=== PATIENT | male | born 1995 | race Caucasian/White ===

== ENCOUNTER 2017-04-13 06:33 | Emergency (ER) | payer OTHER ==
[2017-04-13 06:33] VITALS: BMI 19.8
[2017-04-13] MEDS ORDERED: Alum-Mag Hydrox-Simethicone Susp (30 mL) PO STA (07:19)
--- NOTE | 2017-04-13 07:28 | ED PDOC ---
HPI: Abdomen Time Seen by Provider: 04/13/17 07:04 Chief Complaint (Nursing): Abdominal Pain Chief Complaint (Provider): Abdominal Pain History Per: Patient History/Exam Limitations: no limitations Onset/Duration Of Symptoms: Days (x1), Intermittent Episodes Outside of [place] travel?: No Current Symptoms Are (Timing): Still Present Associated Symptoms: Constipation. denies: Fever, Vomiting Exacerbating Factors: Other (Attempting to make bowel movement) Last Bowel Movement: Today (x4 hours ago) Additional History Per: Family (Mother) Additional Complaint(s): 21 year old male presents to ED with complaints of abdominal pain x1 day and has a past medical history of gastritis. (+) constipation, (-) vomiting or fever. Mother states that she gave the patient Dulcolax with partial relief. Patient notes that he was last diagnosed with gastritis x3 months ago. PCP: Paulo Past Medical History Reviewed: Historical Data, Nursing Documentation, Vital Signs Vital Signs: Last Vital Signs Temp 97.5 F L 04/13/17 06:46 Pulse 60 04/13/17 07:48 Resp 20 04/13/17 07:48 BP 108/70 04/13/17 07:48 Pulse Ox 100 04/13/17 07:32 - Medical History PMH: Gastritis, Pancreatitis Denies: Diabetes, Hepatitis, HIV, HTN, Chronic Kidney Disease, Seizures, Sexually Transmitted Disease - Surgical History Surgical History: No Surg Hx - Family History Family History: States: No Known Family Hx - Living Arrangements Living Arrangements: With Family - Social History Current smoker - smoking cessation education provided: Yes Ex-Smoker (has not smoked in the last 12 months): No Alcohol: None Drugs: Denies - Home Medications Home Medications: Ambulatory Orders Medication Instructions Recorded Ondansetron ODT [Zofran ODT] 4 mg PO TID #21 odt 01/14/16 oxyCODONE/Acetaminophen [Percocet 1 ea PO Q8 PRN #10 tab 01/14/16 5/325 mg Tab] Ibuprofen [Motrin] 600 mg PO TID PRN #30 tab 04/10/16 - Allergies Allergies/Adverse Reactions: Allergies Allergy/AdvReac Type Severity Reaction Status Date / Time No Known Allergies Allergy Verified 07/04/16 14:28 Review of Systems ROS Statement: Except As Marked, All Systems Reviewed And Found Negative Constitutional: Negative for: Fever Gastrointestinal: Positive for: Abdominal Pain, Constipation. Negative for: Nausea Physical Exam - Reviewed Nursing Documentation Reviewed: Yes Vital Signs Reviewed: Yes - Physical Exam Appears: Positive for: Non-toxic Skin: Positive for: Normal Color, Warm, Dry Eye Exam: Positive for: Normal appearance Cardiovascular/Chest: Positive for: Regular Rate, Rhythm. Negative for: Murmur Respiratory: Positive for: Normal Breath Sounds. Negative for: Respiratory Distress Gastrointestinal/Abdominal: Positive for: Soft, Tenderness (epigastric and periumbilical tenderness) Extremity: Positive for: Normal ROM, Deformity Neurologic/Psych: Positive for: Alert, Oriented. Negative for: Motor/Sensory Deficits - Laboratory Results Result Diagrams: 04/13/17 07:54 04/13/17 07:54 - ECG O2 Sat by Pulse Oximetry: 100 (RA) Pulse Ox Interpretation: Normal - Progress Re-evaluation Time: 10:06 Condition: Re-examined, Improved Medical Decision Making Medical Decision Makin Initial impression: abdominal pain DDx: gastritis, colitis, less likely colitis or cholecystitis Initial plan: * Labs * Lipase * Maalox Plus 30mL PO * Pepcid 20mg IVP * Lidocaine 2% viscous * Re-eval 10.05am Pt is improved significantly. No pain at this time. Exam is normal in the abdomen. Scribe Attestation: Documented by Padma Forbes acting as a scribe for Evie Riley. Scribe Attestation: All medical record entries made by the Scribe were at my direction and personally dictated by me. I have reviewed the chart and agree that the record accurately reflects my personal performance of the history, physical exam, medical decision making, and the department course for this patient. I have also personally directed, reviewed, and agree with the discharge instructions and disposition. Disposition - Clinical Impression Clinical Impression: Abdominal pain, Constipation, Gastritis - Patient ED Disposition Is Patient to be Admitted: No Doctor Will See Patient In The: Office Counseled Patient/Family Regarding: Studies Performed, Diagnosis, Need For Followup - Disposition Referrals: [facility] [Outside] Disposition: Routine/Home Disposition Time: 10:07 Condition: GOOD Additional Instructions: Take your medications as instructed. Follow up with your PCP in 2-3 days. Instructions: Gastritis (ED), Constipation (ED)
[2017-04-13] MEDS ORDERED: Alum-Mag Hydrox-Simethicone Susp (30 mL) ONE (07:35)
[2017-04-13 07:49] VITALS: RESP 20
[2017-04-13 08:07] LABS: BASO % 0.4 % (0.0-2.0); EOS # 0.1 K/uL (0.0-0.7); EOS % 1.8 % (0.0-4.0); HEMOGLOBIN 13.6 g/dL (12.0-18.0); LYMPH % 37.1 % (20.0-40.0); MEAN CELL VOLUME 94.1 fl (80.0-94.0); MEAN CORPUSCULAR HEMOGLOBIN 31.4 pg (27.0-31.0); MEAN CORPUSCULAR HGB CONC 33.3 g/dL (33.0-37.0); MEAN PLATELET VOLUME 7.9 fl (7.2-11.7); MONO # 0.8 K/uL (0.0-0.8); NEUT # 4.1 K/uL (1.8-7.0); NEUT % 50.7 % (50.0-75.0); NRBC % 0.1 % (0.0-0.0); RBC 4.33 Mil/uL (4.40-5.90); RED CELL DISTRIBUTION WIDTH 13.9 % (11.5-14.5)
[2017-04-13 08:10] LABS: ALB/GLOB RATIO 1.7 (1.0-2.1); ALBUMIN 4.4 g/dL (3.5-5.0); ALT/SGPT 29 U/L (21-72); AST/SGOT 20 U/L (17-59); BLOOD UREA NITROGEN 10 mg/dl (9-20); CALCIUM 9.4 mg/dL (8.4-10.2); GFR AFRICAN-AMERICAN > 60; GFR NON-AFRICAN AMERICAN > 60; LIPASE 70 U/L (23-300)
[2017-04-13 10:17] VITALS: BP 120/78; PULSE 78; TEMP 97.7; O2SAT 98
== END 2017-04-13 10:17 | disposition home or self-care (01) ==
LOC: H.ER 06:33
DX: K59.00 Constipation, unspecified (principal); K29.70 Gastritis, unspecified, without bleeding; K85.90 Acute pancreatitis without necrosis or infection, unspecified

== ENCOUNTER 2018-03-23 11:32 | Emergency (ER) | payer OTHER ==
[2018-03-23 11:38] VITALS: BMI 18.4
[2018-03-23 11:39] VITALS: BP 106/64; PULSE 62; RESP 17; TEMP 98.2; O2SAT 98
--- NOTE | 2018-03-23 12:51 | ED PDOC ---
HPI: General Adult Time Seen by Provider: 03/23/18 12:00 Chief Complaint (Nursing): Upper Extremity Problem/Injury Chief Complaint (Provider): hands are twitching History Per: Patient History/Exam Limitations: no limitations Onset/Duration Of Symptoms: Days (2 weeks), Intermittent Episodes Current Symptoms Are (Timing): Intermittent Episodes Additional Complaint(s): 22yo male c/o twitching to hands and forearms, states worsens playing video games and after smoking marijuana. Denies headache, weakness, numbness, fever, change in vision, muscle pains or syncope. Past Medical History Reviewed: Historical Data, Nursing Documentation, Vital Signs Vital Signs: Last Vital Signs Temp 98.2 F 03/23/18 11:38 Pulse 62 03/23/18 11:38 Resp 17 03/23/18 11:38 BP 106/64 03/23/18 11:38 Pulse Ox 98 03/23/18 11:38 - Medical History PMH: Gastritis, Pancreatitis Denies: Diabetes, Hepatitis, HIV, HTN, Chronic Kidney Disease, Seizures, Sexually Transmitted Disease - Family History Family History: States: Unknown Family Hx - Living Arrangements Living Arrangements: With Family - Social History Alcohol: Occasional Drugs: Cannabis - Home Medications Home Medications: Ambulatory Orders Medication Instructions Recorded Ondansetron ODT [Zofran ODT] 4 mg PO TID #21 odt 01/14/16 oxyCODONE/Acetaminophen [Percocet 1 ea PO Q8 PRN #10 tab 01/14/16 5/325 mg Tab] Ibuprofen [Motrin] 600 mg PO TID PRN #30 tab 04/10/16 - Allergies Allergies/Adverse Reactions: Allergies Allergy/AdvReac Type Severity Reaction Status Date / Time No Known Allergies Allergy Verified 03/23/18 12:08 Review of Systems Constitutional: Negative for: Fever Cardiovascular: Negative for: Chest Pain, Palpitations Gastrointestinal: Negative for: Nausea, Abdominal Pain Genitourinary Male: Negative for: Dysuria Musculoskeletal: Negative for: Neck Pain Skin: Negative for: Rash, Lesions Neurological: Negative for: Weakness, Numbness Psych: Negative for: Anxiety Physical Exam - Reviewed Nursing Documentation Reviewed: Yes Vital Signs Reviewed: Yes - Physical Exam Appears: Positive for: Well, Non-toxic, No Acute Distress Head Exam: Positive for: ATRAUMATIC, NORMAL INSPECTION, NORMOCEPHALIC Skin: Positive for: Normal Color, Warm, DRY Eye Exam: Positive for: EOMI, Normal appearance, PERRL ENT: Positive for: Normal ENT Inspection Neck: Positive for: Normal, Painless ROM Cardiovascular/Chest: Positive for: Regular Rate, Rhythm Respiratory: Positive for: CNT, Normal Breath Sounds Gastrointestinal/Abdominal: Positive for: Soft. Negative for: Tenderness Back: Positive for: Normal Inspection Extremity: Positive for: Normal ROM Neurologic/Psych: Positive for: Alert, Oriented. Negative for: Motor/Sensory Deficits - ECG O2 Sat by Pulse Oximetry: 98 Medical Decision Making Medical Decision Making: workup for muscle tremor initiated r/o neurologic pathhology, electrolyte abnormality vs drug abuse vs other 1245p notified by RN that patient did not want to wait for testing. [facility]TC. Was aware he needed further testing. Was AAOx3 with stable gait last seen. Disposition - Clinical Impression Clinical Impression: Muscle twitching - Patient ED Disposition Is Patient to be Admitted: No - Disposition Disposition: Left W/O Treatment Disposition Time: 12:45 Condition: STABLE
== END 2018-03-23 12:55 | disposition left against medical advice (07) ==
LOC: H.ER 11:32
DX: M62.838 Other muscle spasm (principal)

== ENCOUNTER 2018-04-16 10:43 | Emergency (ER) | payer OTHER ==
[2018-04-16 10:43] VITALS: BMI 18.4
--- NOTE | 2018-04-16 11:33 | ED PDOC ---
HPI: CCC, URI, Sore Throat Time Seen by Provider: 04/16/18 11:31 Chief Complaint (Nursing): ENT Problem Chief Complaint (Provider): RIGHT EAR History Per: Patient (22 Y/O MALE HERE FOR EVALUATION OF RIGHT EAR PAIN TODAY. DENIES ANY FEVERS/CHILLS/URI. HAS BEEN SWIMMING IN [place] THIS WEEK.) Past Medical History Reviewed: Historical Data, Nursing Documentation, Vital Signs Vital Signs: Last Vital Signs Temp 99.4 F 04/16/18 11:05 Pulse 82 04/16/18 11:05 Resp 17 04/16/18 11:05 BP 111/68 04/16/18 11:05 Pulse Ox 98 04/16/18 11:05 - Medical History PMH: Gastritis, Pancreatitis Denies: Diabetes, Hepatitis, HIV, HTN, Chronic Kidney Disease, Seizures, Sexually Transmitted Disease - Family History Family History: States: Unknown Family Hx - Home Medications Home Medications: Ambulatory Orders Medication Instructions Recorded Ondansetron ODT [Zofran ODT] 4 mg PO TID #21 odt 01/14/16 oxyCODONE/Acetaminophen [Percocet 1 ea PO Q8 PRN #10 tab 01/14/16 5/325 mg Tab] Ibuprofen [Motrin] 600 mg PO TID PRN #30 tab 04/10/16 Acetaminophen [Acetaminophen Extra 2 tab PO Q6 PRN #24 tablet 04/16/18 Strength] Amoxicillin 500 mg PO TID #21 tablet 04/16/18 Ibuprofen [Motrin] 600 mg PO Q8 PRN #21 tab 04/16/18 Neomycin/Polymyxin/Hydrocortis 4 drop AD STAT #1 bottle 04/16/18 [Cortisporin Otic Susp] - Allergies Allergies/Adverse Reactions: Allergies Allergy/AdvReac Type Severity Reaction Status Date / Time No Known Allergies Allergy Verified 03/23/18 12:08 Review of Systems ROS Statement: Except As Marked, All Systems Reviewed And Found Negative Physical Exam - Reviewed Nursing Documentation Reviewed: Yes Vital Signs Reviewed: Yes - Physical Exam Appears: Positive for: Well, Non-toxic, No Acute Distress Head Exam: Positive for: ATRAUMATIC, NORMAL INSPECTION, NORMOCEPHALIC Skin: Positive for: Normal Color, Warm, DRY Eye Exam: Positive for: EOMI, Normal appearance, PERRL ENT: Positive for: TM Is/Are (UNABLE TO VISUALIZE TM RIGHT EAR. MODERATE SWELLING AND EXUDATE EXTERNAL EAR CANAL.). Negative for: Normal ENT Inspection Neck: Positive for: Normal, Painless ROM Cardiovascular/Chest: Positive for: Regular Rate, Rhythm Respiratory: Positive for: CNT, Normal Breath Sounds Gastrointestinal/Abdominal: Positive for: Normal Exam, Soft Back: Positive for: Normal Inspection Extremity: Positive for: Normal ROM Neurologic/Psych: Positive for: Alert, Oriented - ECG O2 Sat by Pulse Oximetry: 98 Disposition - Clinical Impression Clinical Impression: Otitis externa of right ear - Patient ED Disposition Is Patient to be Admitted: No - Disposition Disposition: Routine/Home Disposition Time: 11:33 Condition: FAIR Prescriptions: Acetaminophen [Acetaminophen Extra Strength] 2 tab PO Q6 PRN #24 tablet PRN Reason: Pain, Moderate (4-7) Amoxicillin 500 mg PO TID #21 tablet Ibuprofen [Motrin] 600 mg PO Q8 PRN #21 tab PRN Reason: Pain, Moderate (4-7) Neomycin/Polymyxin/Hydrocortis [Cortisporin Otic Susp] 4 drop AD STAT #1 bottle Instructions: Outer Ear Infection (DC) Forms: [facility] ED School/Work Excuse
[2018-04-16 11:53] VITALS: BP 118/62; PULSE 78; RESP 18; TEMP 99.1; O2SAT 100
== END 2018-04-16 11:40 | disposition home or self-care (01) ==
LOC: H.ER 10:43
DX: H60.91 Unspecified otitis externa, right ear (principal)

== ENCOUNTER 2018-05-22 14:57 | Inpatient (IN) | payer MEDICAID, OTHER ==
[2018-05-22 14:57] VITALS: BMI 18.4
[2018-05-22 15:00] VITALS: O2SAT 98
[2018-05-22] MEDS ORDERED: Sodium Chloride 0.9% 1,000 ML IV STA (15:20)
--- NOTE | 2018-05-22 15:31 | ED PDOC ---
HPI: Abdomen Time Seen by Provider: 05/22/18 15:09 Chief Complaint (Nursing): Psychiatric Evaluation Chief Complaint (Provider): Abdominal pain History Per: Patient History/Exam Limitations: no limitations Additional Complaint(s): Pt reports constant abdominal pain since yesterday, admits to drinking alcohol day before symptoms started. Denies fever, nausea, vomiting, constipation, diarrhea. Similar sxs in past secondary to alcohol use. Mother states patient called 911 for abdominal pain but as per EMS, pt showed them video of pt trying to hang himself. Mother states patient has been having problems with his girlfriend. Denies suicidal ideation at this time. Past Medical History Reviewed: Nursing Documentation, Vital Signs Vital Signs: Last Vital Signs Temp 98.1 F 05/24/18 16:35 Pulse 78 05/24/18 16:35 Resp 18 05/24/18 16:35 BP 112/61 05/24/18 16:35 Pulse Ox 98 05/22/18 21:00 - Medical History PMH: Gastritis, Pancreatitis Denies: Diabetes, Hepatitis, HIV, HTN, Chronic Kidney Disease, Seizures, Sexually Transmitted Disease - Family History Family History: States: Unknown Family Hx - Living Arrangements Living Arrangements: With Family - Social History Current smoker - smoking cessation education provided: No Alcohol: Occasional - Home Medications Home Medications: Ambulatory Orders Medication Instructions Recorded Ondansetron ODT [Zofran ODT] 4 mg PO TID #21 odt 01/14/16 oxyCODONE/Acetaminophen [Percocet 1 ea PO Q8 PRN #10 tab 01/14/16 5/325 mg Tab] Ibuprofen [Motrin] 600 mg PO TID PRN #30 tab 04/10/16 Acetaminophen [Acetaminophen Extra 2 tab PO Q6 PRN #24 tablet 04/16/18 Strength] Amoxicillin 500 mg PO TID #21 tablet 04/16/18 Ibuprofen [Motrin] 600 mg PO Q8 PRN #21 tab 04/16/18 Neomycin/Polymyxin/Hydrocortis 4 drop AD STAT #1 bottle 04/16/18 [Cortisporin Otic Susp] - Allergies Allergies/Adverse Reactions: Allergies Allergy/AdvReac Type Severity Reaction Status Date / Time No Known Allergies Allergy Verified 05/22/18 14:58 Review of Systems Constitutional: Negative for: Fever, Chills Cardiovascular: Negative for: Chest Pain, Palpitations Respiratory: Negative for: Cough, Shortness of Breath Gastrointestinal: Positive for: Abdominal Pain. Negative for: Nausea, Vomiting , Diarrhea Genitourinary Male: Negative for: Dysuria, Hematuria Skin: Negative for: Rash, Lesions Neurological: Negative for: Headache Psych: Negative for: Suicidal ideation Physical Exam - Reviewed Nursing Documentation Reviewed: Yes Vital Signs Reviewed: Yes - Physical Exam Appears: Positive for: Well, No Acute Distress Head Exam: Positive for: ATRAUMATIC, NORMAL INSPECTION Skin: Positive for: Normal Color, Warm, Dry Eye Exam: Positive for: Normal appearance, EOMI, PERRL Cardiovascular/Chest: Positive for: Regular Rate, Rhythm Respiratory: Positive for: Normal Breath Sounds Gastrointestinal/Abdominal: Positive for: Bowel Sounds, Soft, Tenderness (BLQ). 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 - labs - CT abd/pelvis - Bent[place] - Crisis evaluation - 1:1 observation 15:25 Pt attempted to elope from ED, Code [place] initiated, Haldol 5 mg IM and Ativan 2 mg IM administered, involuntary hold due to potential harm to self and history of suicide attempt. Disposition - Clinical Impression Clinical Impression: Depression - Patient ED Disposition Is Patient to be Admitted: Yes - Disposition Disposition Time: 20:16 Condition: STABLE - Pt Status Changed To: Hospital Disposition Of: Inpatient - Admit Certification Admit to Inpatient:: After my assessment, the patient will require hospitalization for at least two midnights. This is because of the severity of symptoms shown, intensity of services needed, and/or the medical risk in this patient being treated as an outpatient. - POA Present On Arrival: None
[2018-05-22 16:01] LABS: BASO % 0.5 % (0.0-2.0); EOS % 0.9 % (0.0-4.0); HEMOGLOBIN 13.8 g/dL (12.0-18.0); LYMPH # 1.1 K/uL (1.0-4.3); LYMPH % 22.2 % (20.0-40.0); MEAN CELL VOLUME 94.7 fl (80.0-94.0); MEAN CORPUSCULAR HEMOGLOBIN 31.7 pg (27.0-31.0); MEAN CORPUSCULAR HGB CONC 33.5 g/dL (33.0-37.0); MEAN PLATELET VOLUME 7.7 fl (7.2-11.7); MONO # 0.6 K/uL (0.0-0.8); MONO % 11.1 % (0.0-10.0); NEUT # 3.3 K/uL (1.8-7.0); NEUT % 65.3 % (50.0-75.0); RBC 4.37 Mil/uL (4.40-5.90); RED CELL DISTRIBUTION WIDTH 14.3 % (11.5-14.5); WHITE BLOOD COUNT 5.1 K/uL (4.8-10.8)
[2018-05-22 16:17] LABS: ALB/GLOB RATIO 1.6 (1.0-2.1); ALBUMIN 4.6 g/dL (3.5-5.0); ALT/SGPT 25 U/L (21-72); AST/SGOT 30 U/L (17-59); BLOOD UREA NITROGEN 12 mg/dl (9-20); CALCIUM 9.4 mg/dL (8.4-10.2); GFR AFRICAN-AMERICAN > 60; GFR NON-AFRICAN AMERICAN > 60; LIPASE 27 U/L (23-300)
[2018-05-22 16:23] LABS: PROTHROMBIN TIME 11.2 Seconds (9.8-13.1)
[2018-05-22 16:26] LABS: PARTIAL THROMBOPLASTIN TIME 29.8 Seconds (25.6-37.1)
--- NOTE | 2018-05-22 16:42 | CT ---
Date of service: 05/22/2018 PROCEDURE: CT Abdomen and Pelvis without intravenous contrast HISTORY: Abdominal pain Prior history of pancreatitis presenting with normal lipase. COMPARISON: 01/14/2016 CTAbdomen and pelvis TECHNIQUE: Unenhanced study. Neither oral nor intravenous contrast administered. Sensitivity and specificity for acute inflammatory processes limited by the absence of oral and intravenous contrast. Radiation dose: Total exam DLP = 266.09 mGy-cm. This CT exam was performed using one or more of the following dose reduction techniques: Automated exposure control, adjustment of the mA and/or kV according to patient size, and/or use of iterative reconstruction technique. FINDINGS: LOWER THORAX: Unremarkable. LIVER: Unremarkable. No gross lesion or ductal dilatation. GALLBLADDER AND BILE DUCTS: Unremarkable. PANCREAS: Unremarkable. No gross lesion or ductal dilatation. SPLEEN: Unremarkable. ADRENALS: Unremarkable. No mass. KIDNEYS AND URETERS: Unremarkable. No hydronephrosis. No solid mass. VASCULATURE: Unremarkable. No aortic aneurysm. BOWEL: Unremarkable. No obstruction. No gross mural thickening. APPENDIX: Unremarkable. Normal appendix. PERITONEUM: No free fluid. No free air. LYMPH NODES: Multiple mesenteric lymph nodes consistent with mesenteric adenitis. Similar findings identified previously. BLADDER: Unremarkable. REPRODUCTIVE: Unremarkable. BONES: No acute fracture. OTHER FINDINGS: None. IMPRESSION: No acute findings related to/accounting for the clinical presentation. Additional benign and/or incidental findings described above. No significant interval change compared to the prior examination(s).
[2018-05-22 16:55] LABS: SQUAMOUS EPITHIAL < 1 /hpf (0-5); URINE BILIRUBIN NEGATIVE (NEGATIVE); URINE BLOOD NEGATIVE (NEGATIVE); URINE CALCIUM OXALATE CRYSTALS OCC /hpf (<OCC); URINE CLARITY SLIGHTY-CLOUDY (Clear); URINE COLOR YELLOW (YELLOW); URINE GLUCOSE (UA) NEG (Normal); URINE LEUKOCYTE ESTERASE NEG Leu/uL (Negative); URINE PROTEIN 30 mg/dL (NEGATIVE)
[2018-05-22 17:08] LABS: BARBITURATES, UR NEGATIVE (NEGATIVE); BENZODIAZEPINES, UR POSITIVE (NEGATIVE); OPIATES, UR NEGATIVE (NEGATIVE); PHENCYCLIDINE, UR NEGATIVE (NEGATIVE)
--- NOTE | 2018-05-22 17:09 | RAD ---
Date of service: 05/22/2018 HISTORY: Medical clearance COMPARISON: 01/14/2016 FINDINGS: LUNGS: No active pulmonary disease. PLEURA: No significant pleural effusion identified, no pneumothorax apparent. CARDIOVASCULAR: Normal. OSSEOUS STRUCTURES: No significant abnormalities. VISUALIZED UPPER ABDOMEN: Normal. OTHER FINDINGS: None. IMPRESSION: No active disease.
[2018-05-22] MEDS ORDERED: Magnesium Hydroxide Susp 30 ml UD PO PRN (21:53)
[2018-05-22] MEDS ORDERED: DiphenhydrAMINE 50 mg/ml Inj IM PRN (21:53)
[2018-05-22] MEDS ORDERED: Alum-Mag Hydrox-Simethicone Susp (30 mL) PO PRN (21:53)
[2018-05-22 22:24] VITALS: RESP 18
--- NOTE | 2018-05-22 23:25 | PCM.BM ---
<Sherron Dimas P - Last Filed: 05/22/18 23:24> Treatment Plan Problems - Problems identified on initial assessmt Hopelessness/Helplessness Date Initiated: 05/22/18 Time Initiated: 23:24 Assessment reference: NA Status: Active Altered Sleep Patterns Date Initiated: 05/22/18 Time Initiated: 23:24 Assessment reference: NA Status: Active Treatment assets and liabiliti Patient Assests: cooperative, physically healthy, negotiates basic needs, cognitively intact Patient Liabilities: financial problems, relationship conflicts, substance abuse - Milieu Protocol Maintain good personal hygiene: daily Encourage regular showers, daily Remind patient to perform daily oral care, daily Assist patient to perform ADL's Conduct patient checks and document Observation sheet: Q15 minutes Maintain personal safety: every shift Educate patient to report safety concerns to staff, every shift Monitor environment for contraband/sharps Medication safety: Monitor for expected outcome, potential side effects: every shift, Assess barriers to learning: every shift, Assess readiness for medication education: every shift <Jose Francisco Hamm J - Last Filed: 05/23/18 13:47> Family Contact Family involvement: Family/SO is involved Family contact: Patient declines to allow family contact at present Family contact name: Pt declined. Family contacted how many times per week?: 0 - Goals for Treatment Patient goals for treatment: Pt reported he would like to "relax." Discharge/Continuing Care - Education Needs Education Needs: Patient Medication, Patient Diagnosis/Disease Process, Patient Coping Skills, Patient Aftercare Safety Plan - Discharge Discharge Criteria: Tolerates medication w/o severe side effects, Free of Suicidal thoughts, Free of agitation, Reduction of target symptoms Discharge to:: Home, With Family - Additional Comments 05/23/18 13:49 Pt was met with in team where pt reported he has been depressed for a year due to a toxic relationship. Pt reported he broke up with this girl about a week ago. Pt reported he posted a video on [employer] of him faking to hang himself for attention. Pt admitted to being admitted to [facility] when he was younger for writing "crazy stuff." Pt reported beginning college as a goal and reported he has smoked marijuana since age 8 and cigarettes since age 7. Pt repoted he currently feels "alright" and is agreeable to therapy. - Treatment Team Participation Discussed with Family/SO: No Was Patient/Family/SO present at Treatment Team Meeting: Yes <Ananya Riley - Last Filed: 05/26/18 11:11> - Diagnosis (1) Depression Status: Acute Interventions: pharmacotherapy, psychotherapy 05/26/18 11:11
--- NOTE | 2018-05-23 06:10 | CARD ---
APPROVED REPORT Date of service: 05/22/2018 <Conclusion> Sinus bradycardia Incomplete right bundle branch block Early repolarization Borderline ECG
[2018-05-23 09:07] LABS: T4 9.47 ug/dl (5.5-11.0)
--- NOTE | 2018-05-23 16:07 | PCM.PSYCH ---
Initial Psychiatric Evaluation - Initial Psychiatric Evaluation Type of Admission: Voluntary Chief Complaint (in patient's own words): I am depressed since I broke up with my girl friend History of Present Illness and Precipitating Events: pt is 22ys old male , previous two hospitalizations at [facility], currently non compliant with medications or follow up, pt brought to ER after verbalizing suicidal ideation with plan to hang himself, pt has posted a video on face book , showin how he intends to end his life pt reported he has been increasingly depressed in the context of break up with his girl friend pt presenting on the unit with concrete thought process depressed mood and and affect, anhedonia, low energy and poor motivation. passive suicidal ideation without active plan or intent on the unit pt denied command hallucinations, reported using cannabis daily since age 8 collateral information CW (MANISH) met with pt's grandmother (Sandra Oreilly), whom reported that pt contacted 911 himself as he had complaints of Abdominal pain. Pt's grandmother reported that pt had a video recording of him "attempting to hang himself. Pt's grandmother reported that she is concerned about pt's safety as pt has been acting differently ever since he stated dating a girl, whom appears to may be suffering from mental illness, and threatens to self-harm, if pt leaves her or does not do what she wants. Pt's grandmother stated pt has a Hx of ADHD and Developmental disabilities, whereas as per Ms. Oreilly; pt has the mentally of a 10 year old. Pt's grandmother reported pt was in psychiatric treatment in the past, but he declines to take his medication. Pt's grandmother stated pt does not have any criminal hx. Pt's grandmother stated she believes pt would benefit from a higher level of care as pt continues to demonstrate he is having challenges with dealing with current stressors effectively. Current Medications: Active Medications Generic Name Dose Route Start Last Admin Trade Name Freq PRN Reason Stop Dose Admin Acetaminophen 650 mg 05/22/18 21:53 Tylenol 325mg Tab PO Q4 PRN pain level 4-7 Al Hydrox/Mg Hydrox/Simethicone 30 ml 05/22/18 21:53 Maalox Plus 30 Ml PO Q4 PRN Dyspepsia Bupropion HCl 150 mg 05/24/18 09:00 Wellbutrin Sr 150 Mg PO DAILY RAZ Diphenhydramine HCl 50 mg 05/22/18 21:53 Benadryl IM Q6 PRN Extrapyramidal S/S Unable PO Diphenhydramine HCl 50 mg 05/22/18 21:53 Benadryl PO Q6 PRN Extrapyramidal Symptoms Diphenhydramine HCl 50 mg 05/22/18 21:55 05/23/18 02:17 Benadryl PO 50 mg HS PRN Administration Sleep Haloperidol 5 mg 05/22/18 21:53 Haldol PO Q4 PRN Agitation Haloperidol Lactate 5 mg 05/22/18 21:53 Haldol IM Q4 PRN Agitation, Unable to Take PO Hydroxyzine Pamoate 25 mg 05/23/18 14:31 Vistaril PO Q8 PRN Anxiety Lorazepam 1 mg 05/22/18 21:53 Ativan IM Q8H PRN Anxiety/Agitation,Unable PO Magnesium Hydroxide 30 ml 05/22/18 21:53 Milk Of Magnesia PO HS PRN Constipation Past Psychiatric History - Past Psychiatric History Explanation of prior treatment: two inpatient hospitalizations as teem age History of ETOH/Drug Use: cannabis abuse daily Pertinent Medical Hx (Current Medical&Sleep Prob, Allergies): Allergies Allergy/AdvReac Type Severity Reaction Status Date / Time No Known Allergies Allergy Verified 05/22/18 14:58 Ondansetron ODT [Zofran ODT] 4 mg PO TID #21 odt 01/14/16 oxyCODONE/Acetaminophen [Percocet 5/325 mg Tab] 1 ea PO Q8 PRN #10 tab 01/14/16 Ibuprofen [Motrin] 600 mg PO TID PRN #30 tab 04/10/16 Acetaminophen [Acetaminophen Extra Strength] 2 tab PO Q6 PRN #24 tablet Amoxicillin 500 mg PO TID #21 tablet 04/16/18 Ibuprofen [Motrin] 600 mg PO Q8 PRN #21 tab 04/16/18 Neomycin/Polymyxin/Hydrocortis [Cortisporin Otic Susp] 4 drop AD STAT #1 bottle 04/16/18 Mental Status Examination - Personal Presentation Personal Presentation: Looks younger than stated age - Affect Affect: Constricted - Motor Activity Motor Activity: Psychomotor Retardation - Reliability in Providing Information Reliability in Providing Information: Poor, due to alteration in thoughts, Poor , due to altered mood - Speech Speech: Tangential - Mood Mood: Depressed, Anxious - Formal Thought Process Formal Thought Process: Circumstantial - Hallucinations/Delusions Additional comments: pt denied perceptual disturbances, non elicited - Obsessions/Compulsions Obsessions: No Compulsions: No - Cognitive Functions Orientation: Person, Place Sensorium: Alert Attention/Concentration: Easily distracted Abstract Thinking: [place] Judgement: Imparied, as evidence by: Poor judgement, Imparied, as evidence by: Lack of insight into illness - Risk Risk: Suicidal, Diminished functioning - Strength & Assets Inventory Strength & Assets Inventory: Family support - Limitations Additional comments: poor compliance DSM 5 DX - DSM 5 DSM 5 Diagnosis: major depression borderline intellectual function cannabis abuse - Recommended/Plan of Treatment Treatment Recommendations and Plan of Treatment: start wellbutrin 75mg daily, increase 150mg daily CBT group and supportive therapy medical consult for abdominal pain
[2018-05-24] MEDS: buPROPion SR 150 MG TABLET PO SCH (09:36)
[2018-05-24] MEDS ORDERED: Atropine-Diphenoxylate 0.025-2.5mg/5 mL Oral Liq (60 ml) PO PRN (10:51)
[2018-05-24] MEDS ORDERED: Atropine-Diphenoxylate 0.025-2.5 mg Tab PO PRN (12:06)
--- NOTE | 2018-05-24 16:29 | PCM.PYCHPN ---
Psychiatric Progress Note - Psychiatric Progress Note Patient seen today, length of contact: chart reviewed case discussed with team Patient Chief Complaint: was feeling hyper had stopped medications reportedly was drinking the saturday before admission approx. 1/2 hennesy. reports had only tried cocaine once because friends had it tried it intranasally did not like that is why it showed as being positive in urine. reports that plays baseball to relax. does report smoking one pack cigarrettes per day request nicotine patch. was treated this am for episode diarrhea. staff report pt as being adherent with treatment. Problems Identified/Issues Discussed: alteration in mood alteration in coping poly substance use nicotine cocaine active Medical Problems: per chart Diagnostic Results: per psychiatry per medicine per nursing per social work per recreational therapy DSM 5 Symptoms Update: some improvement mood, remains somewhat anxious, possible nicotine w/d Medication Change: Yes (nicotine patch 21mg topically am off hs) Medical Record Reviewed: Yes Consults ordered or reviewed: pt seen by hospitalist Mental Status Examination - Cognitive Function Orientation: Person, Place, Situation, Time Decription of patient's judgement and insights: attention concentration somewhat impaired - Mood Mood: Depressed, Anxious - Affect Affect: Constricted - Speech Additional comments: somewhat pressured - Formal Thought Process Formal Thought Process: Circumstantial - Homicidal Ideation Homicidal Ideation: No Goal/Treatment Plan - Goal/Treatment Plan Progress Toward Problem(s) and Goals/Treatment Plan: inpt milieu adjust meds per status vital signs and clinical observation per protocol and per clinical status nicotine patch 21 mg topically am and off hs discharge planning progress Estimated Date of D/C: 05/27/18 - Smoking Cessation Smoking Cessation Initiated: Yes
[2018-05-25] MEDS: buPROPion SR 150 MG TABLET PO SCH (08:28)
--- NOTE | 2018-05-25 17:56 | PCM.PYCHPN ---
Psychiatric Progress Note - Psychiatric Progress Note Patient seen today, length of contact: chart reviewed case discussed with team Patient Chief Complaint: feeling less nervous, better able to focus, sleeping betting, reflects on past decisions not being able to read, reflects on past not be able to read or write some writing reflects on liking to paint review notion of journal of art work, drawings etc. adherent with treatment denies side effects. Problems Identified/Issues Discussed: alteration in mood alteration in coping poly substance use nicotine cocaine active Medical Problems: per chart Diagnostic Results: per psychiatry per medicine per nursing per social work per recreational therapy Medication Change: Yes (nicotine patch 21mg topically am off hs) Medical Record Reviewed: Yes Consults ordered or reviewed: pt seen by hospitalist Mental Status Examination - Cognitive Function Orientation: Person, Place, Situation, Time Decription of patient's judgement and insights: attention concentration somewhat impaired - Mood Mood: Anxious - Affect Affect: Constricted - Formal Thought Process Formal Thought Process: Circumstantial - Homicidal Ideation Homicidal Ideation: No Goal/Treatment Plan - Goal/Treatment Plan Progress Toward Problem(s) and Goals/Treatment Plan: inpt milieu adjust meds per status vital signs and clinical observation per protocol and per clinical status discharge planning progress Estimated Date of D/C: 05/27/18 - Smoking Cessation Smoking Cessation Initiated: Yes
[2018-05-26] MEDS: buPROPion SR 150 MG TABLET PO SCH (08:54)
[2018-05-26 09:21] VITALS: BP 135/79; PULSE 82; TEMP 97.2
--- NOTE | 2018-05-26 14:09 | PCM.PYCHDC ---
Mental Status Examination - Mental Status Examination Orientation: Person, Place, Situation Memory: Intact Mood: Neutral Affect: Broad Speech: Appropriate Attention: WNL Concentration: WNL Association: WNL Fund of Knowledge: WNL Formal Thought Process: Circumstantial Description of patient's judgement and insight: partial insight fair judgment Psychotic Thoughts and Behaviors: pt denied any current perceptual disturbances, non elicited Suicidal Ideation: No Current Homicidal Ideation?: No Discharge Summary - Discharge Note Reason for Hospitalization: t is 22ys old male , previous two hospitalizations at [facility], currently non compliant with medications or follow up, pt brought to ER after verbalizing suicidal ideation with plan to hang himself, pt has posted a video on face book , showin how he intends to end his life pt reported he has been increasingly depressed in the context of break up with his girl friend pt presenting on the unit with concrete thought process depressed mood and and affect, anhedonia, low energy and poor motivation. passive suicidal ideation without active plan or intent on the unit pt denied command hallucinations, reported using cannabis daily since age 8 collateral information CW (MANISH) met with pt's grandmother (Sandra Oreilly), whom reported that pt contacted 911 himself as he had complaints of Abdominal pain. Pt's grandmother reported that pt had a video recording of him "attempting to hang himself. Pt's grandmother reported that she is concerned about pt's safety as pt has been acting differently ever since he stated dating a girl, whom appears to may be suffering from mental illness, and threatens to self-harm, if pt leaves her or does not do what she wants. Pt's grandmother stated pt has a Hx of ADHD and Developmental disabilities, whereas as per Ms. Oreilly; pt has the mentally of a 10 year old. Pt's grandmother reported pt was in psychiatric treatment in the past, but he declines to take his medication. Pt's grandmother stated pt does not have any criminal hx. Pt's grandmother stated she believes pt would benefit from a higher level of care as pt continues to demonstrate he is having challenges with dealing with current stressors effectively. Consultations:: List each consultation separately and include: 1. Reason for request. 2. Findings. 3. Follow-up Summary of Hospital Course include:: 1. Description of specific treatment plan utilized for patients during their course of treatmen. 2. Summarize the time- course for resolution of acute symptoms and/or regressed behaviors. 3. Describe issues identified and worked on during hospitalization. 4. Describe medication utilized. 5. Describe medical problems identified and treated. 6. Reassessment of suicide risk Summary of Hospital Course: pt on admission presented with depressed mood, pt was started on wellbutrin for depression and to help with craving for cannabis motivational therapy provided in reference to cannabis use consult was requested and done in reference to abdominal pain pt was compliant with treatment, attended groups, no reported side effects of medication on discharge mental status was stable, pt denied any thoughts of self harm denied suicidal or homicidal ideation, denied perceptual disturbances follow up arranged by social media job [employer] at [facility] out patient [facility] program - Diagnosis (1) Depression Current Visit: Yes Status: Acute - Final Diagnosis (DSM 5) Condition upon Discharge: STABLE DSM 5: substance induced mood disorder cannabis abuse continuous adjustment disorder with depressed mood Disposition: HOME/ ROUTINE Prescriptions/Medication Reconciliation: buPROPion SR [Wellbutrin SR 150 MG] 150 mg PO DAILY 30 Days #30 tab Famotidine [Pepcid] 40 mg PO HS 30 Days #30 tab Nicotine 21 mg/24 hr [Nicoderm Cq] 1 patch TD DAILY 30 Days #30 patch - Smoking Cessation Smoking Cessation Medication prescribed: Yes - Antipsychotic Medications Pt discharged on 2 or more routine antipsychotic medications: No
== END 2018-05-26 15:12 | disposition home or self-care (01) | DRG 748 ==
LOC: H.ER 14:57 → H.ERHOLD 20:16 → H.PSYCH 21:51
PROVIDERS: ADMIT Psychiatry & Neurology Psychiatry; ATTEND Psychiatry & Neurology Psychiatry
PROC: HZ52ZZZ Individual Psychotherapy for Substance Abuse Treatment, Cognitive-Behavioral (ICD-10-PCS; principal; 2018-05-22)
PROC: GZHZZZZ Group Psychotherapy (ICD-10-PCS; 2018-05-22)
PROC: GZ58ZZZ Individual Psychotherapy, Cognitive-Behavioral (ICD-10-PCS; 2018-05-22)
DX: F19.94 Other psychoactive substance use, unspecified with psychoactive substance-induced mood disorder (principal); F43.21 Adjustment disorder with depressed mood; F14.10 Cocaine abuse, uncomplicated; R45.851 Suicidal ideations; F12.10 Cannabis abuse, uncomplicated; R41.83 Borderline intellectual functioning; F90.9 Attention-deficit hyperactivity disorder, unspecified type; Z91.14 Patient's other noncompliance with medication regimen; K29.70 Gastritis, unspecified, without bleeding; F17.210 Nicotine dependence, cigarettes, uncomplicated; Z91.5 Personal history of self-harm; Z79.899 Other long term (current) drug therapy

== ENCOUNTER 2018-07-06 09:31 | Emergency (ER) | payer MEDICAID, OTHER ==
[2018-07-06 09:31] VITALS: BMI 18.4
[2018-07-06 09:39] VITALS: TEMP 98.2
[2018-07-06] MEDS ORDERED: Sodium Chloride 0.9% 1,000 ML IV STA (10:28)
--- NOTE | 2018-07-06 10:40 | ED PDOC ---
HPI: Abdomen Time Seen by Provider: 07/06/18 10:17 Chief Complaint (Nursing): Abdominal Pain Chief Complaint (Provider): abdominal pain, diarrhea History Per: Patient History/Exam Limitations: no limitations Onset/Duration Of Symptoms: Hrs (today) Additional Complaint(s): Payam Oreilly, a 22 year old male with no past medical history, presents to the emergency department with abdominal pain and 3 episodes of non bloody diarrhea since this morning. Patient states he ate 4 bags of spicy chips prior to symptoms. He denies fever, nausea or vomiting. No further medical complaints. Past Medical History Reviewed: Historical Data, Nursing Documentation, Vital Signs Vital Signs: Last Vital Signs Temp 98.2 F 07/06/18 09:38 Pulse 86 07/06/18 14:40 Resp 18 07/06/18 14:40 BP 112/70 07/06/18 14:40 Pulse Ox 98 07/06/18 14:40 - Medical History PMH: Depression, Gastritis, Pancreatitis Denies: Diabetes, Hepatitis, HIV, HTN, Chronic Kidney Disease, Seizures, Sexually Transmitted Disease - Surgical History Surgical History: No Surg Hx - Family History Family History: States: Unknown Family Hx - Home Medications Home Medications: Ambulatory Orders Medication Instructions Recorded Ibuprofen [Motrin Tab] 600 mg PO TID PRN #30 tab 04/10/16 Acetaminophen [Acetaminophen Extra 2 tab PO Q6 PRN #24 tablet 04/16/18 Strength] Ibuprofen [Motrin Tab] 600 mg PO Q8 PRN #21 tab 04/16/18 Neomycin/Polymyxin/Hydrocortis 4 drop AD STAT #1 bottle 04/16/18 [Cortisporin Otic Susp] Famotidine [Pepcid] 40 mg PO HS 30 Days #30 tab 05/26/18 Nicotine 21 mg/24 hr [Nicoderm Cq] 1 patch TD DAILY 30 Days #30 patch 05/26/18 buPROPion SR [Wellbutrin SR 150 MG] 150 mg PO DAILY 30 Days #30 tab 05/26/18 Dicyclomine [Bentyl] 20 mg PO QID PRN #10 tab 07/06/18 - Allergies Allergies/Adverse Reactions: Allergies Allergy/AdvReac Type Severity Reaction Status Date / Time No Known Allergies Allergy Verified 05/22/18 14:58 Review of Systems ROS Statement: Except As Marked, All Systems Reviewed And Found Negative Constitutional: Negative for: Fever Gastrointestinal: Negative for: Nausea, Vomiting Physical Exam - Reviewed Nursing Documentation Reviewed: Yes Vital Signs Reviewed: Yes - Physical Exam Appears: Positive for: Well, Non-toxic, No Acute Distress Head Exam: Positive for: ATRAUMATIC, NORMAL INSPECTION, NORMOCEPHALIC Skin: Positive for: Normal Color, Warm, DRY Eye Exam: Positive for: EOMI, Normal appearance, PERRL ENT: Positive for: Normal ENT Inspection Neck: Positive for: Normal, Painless ROM Cardiovascular/Chest: Positive for: Regular Rate, Rhythm Respiratory: Positive for: Normal Breath Sounds. Negative for: Respiratory Distress Gastrointestinal/Abdominal: Positive for: Tenderness (bilateral upper quadrants , more in left upper quad). Negative for: Guarding, Rebound Neurologic/Psych: Positive for: Alert, Oriented - Laboratory Results Result Diagrams: 07/06/18 10:40 07/06/18 10:40 - ECG O2 Sat by Pulse Oximetry: 96 (RA) Pulse Ox Interpretation: Normal Medical Decision Making Medical Decision Making: Time: 10:17 Initial Impression: abdominal pain, diarrhea Initial Plan: --CT abd pelvis --Alcohol serum --CMP --Drug screen --Ed urine dipstick --CBC w/ differential --Bentyl 20 mg PO --Sodium chloride 1000 ml IV --Urinalysis Accession No. : [id number] Patient Name / ID : CHANDRA JETT / [id number] Exam Date : 07/06/2018 12:40:37 ( Approved ) Study Comment : Sex / Age : M / 22Y Creator : Marky Wiggins MD Dictator : Marky Wiggins MD Insurance Underwriter : Configuration Management Analyst : Marky Wiggins MD Approver2 : Report Date : 07/06/2018 13:25:06 My Comment : Date of service: 07/06/2018 PROCEDURE: CT Abdomen and Pelvis without intravenous contrast HISTORY: LUQ pain, diarrhea COMPARISON: None. TECHNIQUE: CT scan of the abdomen and pelvis was performed without administration of intravenous contrast. Oral contrast was not administered. Coronal and sagittal reformatted images were obtained. . Contrast dose: Radiation dose: Total exam DLP = mGy-cm. This CT exam was performed using one or more of the following dose reduction techniques: Automated exposure control, adjustment of the mA and/or kV according to patient size, and/or use of iterative reconstruction technique. FINDINGS: LOWER THORAX: The visualized lungs are clear. LIVER: Normal in size. No intrahepatic ductal dilatation. GALLBLADDER AND BILE DUCTS: No calcified gallstones. No biliary dilatation PANCREAS: Normal in size. No ductal dilatation. SPLEEN: Normal in size. ADRENALS: Normal in size. No discrete nodule. KIDNEYS AND URETERS: Normal in size without nephrolithiasis. No hydronephrosis. VASCULATURE: No aortic aneurysm. BOWEL: The small bowel loops are normal in caliber. The colon is normal in size. No bowel dilatation or wall thickening. No bowel obstruction. APPENDIX: Normal appendix. PERITONEUM: No free fluid. No free air. LYMPH NODES: No enlarged lymph nodes. BLADDER: Well distended and grossly normal in appearance. REPRODUCTIVE: The uterus is normal in size BONES: No acute fracture. OTHER FINDINGS: None. IMPRESSION: No acute abdominal or pelvic abnormality. Scribe Attestation: Documented by Yulissa Oseguera, acting as a scribe for Shanita Antony MD. Provider Scribe Attestation: All medical record entries made by the Scribe were at my direction and personally dictated by me. I have reviewed the chart and agree that the record accurately reflects my personal performance of the history, physical exam, medical decision making, and the department course for this patient. I have also personally directed, reviewed, and agree with the discharge instructions and disposition. Disposition - Clinical Impression Clinical Impression: Abdominal pain - Disposition Referrals: Mohamud Bates MD [Family Provider] - Disposition: Routine/Home Disposition Time: 14:10 Condition: IMPROVED Prescriptions: Dicyclomine [Bentyl] 20 mg PO QID PRN #10 tab PRN Reason: Pain, Moderate (4-7) Instructions: Acute Abdomen (Belly Pain) Forms: [facility] (Djiboutian)
[2018-07-06 11:03] LABS: BASO % 0.3 % (0.0-2.0); EOS % 0.2 % (0.0-4.0); HEMOGLOBIN 13.7 g/dL (12.0-18.0); LYMPH # 1.3 K/uL (1.0-4.3); LYMPH % 11.7 % (20.0-40.0); MEAN CELL VOLUME 94.2 fl (80.0-94.0); MEAN CORPUSCULAR HEMOGLOBIN 31.5 pg (27.0-31.0); MEAN CORPUSCULAR HGB CONC 33.4 g/dL (33.0-37.0); MEAN PLATELET VOLUME 7.8 fl (7.2-11.7); MONO # 0.7 K/uL (0.0-0.8); MONO % 5.8 % (0.0-10.0); NEUT # 9.5 K/uL (1.8-7.0); RBC 4.35 Mil/uL (4.40-5.90); RED CELL DISTRIBUTION WIDTH 14.4 % (11.5-14.5); WHITE BLOOD COUNT 11.6 K/uL (4.8-10.8)
[2018-07-06 11:10] LABS: URINE AMORPHOUS SEDIMENT MODERATE /ul (<OCC); URINE BACTERIA RARE (<OCC); URINE BILIRUBIN NEGATIVE (NEGATIVE); URINE BLOOD NEGATIVE (NEGATIVE); URINE CLARITY TURBID (Clear); URINE COLOR YELLOW (YELLOW); URINE GLUCOSE (UA) NEG (Normal); URINE LEUKOCYTE ESTERASE NEG Leu/uL (Negative); URINE PROTEIN 30 mg/dL (NEGATIVE); URINE UROBILINOGEN 0.2-1.0 mg/dL (0.2-1.0)
[2018-07-06 11:11] LABS: ALB/GLOB RATIO 1.2 (1.0-2.1); ALBUMIN 4.4 g/dL (3.5-5.0); ALT/SGPT 20 U/L (21-72); AST/SGOT 37 U/L (17-59); BLOOD UREA NITROGEN 12 mg/dl (9-20); CALCIUM 9.9 mg/dL (8.4-10.2); GFR NON-AFRICAN AMERICAN > 60
[2018-07-06 11:21] LABS: BARBITURATES, UR NEGATIVE (NEGATIVE); BENZODIAZEPINES, UR NEGATIVE (NEGATIVE); OPIATES, UR NEGATIVE (NEGATIVE); PHENCYCLIDINE, UR NEGATIVE (NEGATIVE)
[2018-07-06] MEDS ORDERED: Iohexol 300 100 ML IJ ONE (11:51)
[2018-07-06] MEDS ORDERED: Sodium Chloride 0.9% 50 ML IV ONE (11:51)
--- NOTE | 2018-07-06 13:26 | CT ---
Date of service: 07/06/2018 PROCEDURE: CT Abdomen and Pelvis without intravenous contrast HISTORY: LUQ pain, diarrhea COMPARISON: None. TECHNIQUE: CT scan of the abdomen and pelvis was performed without administration of intravenous contrast. Oral contrast was not administered. Coronal and sagittal reformatted images were obtained. . Contrast dose: Radiation dose: Total exam DLP = mGy-cm. This CT exam was performed using one or more of the following dose reduction techniques: Automated exposure control, adjustment of the mA and/or kV according to patient size, and/or use of iterative reconstruction technique. FINDINGS: LOWER THORAX: The visualized lungs are clear. LIVER: Normal in size. No intrahepatic ductal dilatation. GALLBLADDER AND BILE DUCTS: No calcified gallstones. No biliary dilatation PANCREAS: Normal in size. No ductal dilatation. SPLEEN: Normal in size. ADRENALS: Normal in size. No discrete nodule. KIDNEYS AND URETERS: Normal in size without nephrolithiasis. No hydronephrosis. VASCULATURE: No aortic aneurysm. BOWEL: The small bowel loops are normal in caliber. The colon is normal in size. No bowel dilatation or wall thickening. No bowel obstruction. APPENDIX: Normal appendix. PERITONEUM: No free fluid. No free air. LYMPH NODES: No enlarged lymph nodes. BLADDER: Well distended and grossly normal in appearance. REPRODUCTIVE: The uterus is normal in size BONES: No acute fracture. OTHER FINDINGS: None. IMPRESSION: No acute abdominal or pelvic abnormality.
[2018-07-06 15:20] VITALS: BP 112/70; PULSE 86; RESP 18
[2018-07-07 14:25] VITALS: O2SAT 96
== END 2018-07-06 14:40 | disposition home or self-care (01) ==
LOC: H.ER 09:31
DX: R10.9 Unspecified abdominal pain (principal)
CPT/HCPCS: 74177; 80053; 80320; 80324; 80345; 80346; 80349; 80353; 80358; 80361; 81003; 83992; 85025; 99283; J7030; Q9967

== ENCOUNTER 2018-08-27 12:07 | Emergency (ER) | payer OTHER ==
[2018-08-27 12:07] VITALS: BMI 18.4
[2018-08-27 12:12] VITALS: RESP 18
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
[2018-08-27 14:07] VITALS: BP 128/79; PULSE 75; TEMP 97.9
[2018-08-27 16:51] VITALS: O2SAT 98
== END 2018-08-27 13:50 | disposition home or self-care (01) ==
LOC: H.ER 12:07 → SUPCPDRO 12:07 → H.ER 13:50
DX: F32.9 Major depressive disorder, single episode, unspecified (principal)

== ENCOUNTER 2018-09-03 17:18 | Emergency (ER) | payer OTHER ==
[2018-09-03 17:18] VITALS: BMI 18.4
--- NOTE | 2018-09-03 18:26 | ED PDOC ---
HPI: General Adult Time Seen by Provider: 09/03/18 17:23 Chief Complaint (Nursing): Seizure Chief Complaint (Provider): tremors;loc History Per: Patient (22 y/o male here for evaluation of possible seizure. Patient denies being on any medications. NOtes he drinking etoh and had one beer today. States he was noting tremors on and off and had falled recently with injury on tooth.) Past Medical History Reviewed: Historical Data, Nursing Documentation, Vital Signs Vital Signs: Last Vital Signs Temp 97.8 F 09/03/18 17:29 Pulse 96 H 09/03/18 17:29 Resp 20 09/03/18 17:29 BP 118/77 09/03/18 17:29 Pulse Ox 98 09/03/18 17:29 - Medical History PMH: Anxiety, Depression, Gastritis, Pancreatitis Denies: Diabetes, Hepatitis, HIV, HTN, Chronic Kidney Disease, Seizures, Sexually Transmitted Disease - Family History Family History: States: Unknown Family Hx - Home Medications Home Medications: Ambulatory Orders Medication Instructions Recorded RX: Ibuprofen [Motrin Tab] 600 mg PO TID PRN #30 tab 04/10/16 RX: Acetaminophen [Acetaminophen 2 tab PO Q6 PRN #24 tablet 04/16/18 Extra Strength] RX: Ibuprofen [Motrin Tab] 600 mg PO Q8 PRN #21 tab 04/16/18 RX: Neomycin/Polymyxin/Hydrocortis 4 drop AD STAT #1 bottle 04/16/18 [Cortisporin Otic Susp] RX: Famotidine [Pepcid] 40 mg PO HS 30 Days #30 tab 05/26/18 RX: Nicotine 21 mg/24 hr [Nicoderm 1 patch TD DAILY 30 Days #30 patch 05/26/18 Cq] RX: buPROPion SR [Wellbutrin SR 150 mg PO DAILY 30 Days #30 tab 05/26/18 150 MG] Dicyclomine [Bentyl] 20 mg PO QID PRN #10 tab 07/06/18 - Allergies Allergies/Adverse Reactions: Allergies Allergy/AdvReac Type Severity Reaction Status Date / Time No Known Allergies Allergy Verified 09/03/18 17:19 Review of Systems ROS Statement: Except As Marked, All Systems Reviewed And Found Negative Physical Exam - Reviewed Nursing Documentation Reviewed: Yes Vital Signs Reviewed: Yes - Physical Exam Appears: Positive for: Well, Non-toxic, No Acute Distress Head Exam: Positive for: ATRAUMATIC, NORMAL INSPECTION, NORMOCEPHALIC Skin: Positive for: Normal Color, Warm, DRY Eye Exam: Positive for: EOMI, Normal appearance, PERRL ENT: Positive for: Normal ENT Inspection Neck: Positive for: Normal, Painless ROM Cardiovascular/Chest: Positive for: Regular Rate, Rhythm Respiratory: Positive for: CNT, Normal Breath Sounds Gastrointestinal/Abdominal: Positive for: Normal Exam, Soft Back: Positive for: Normal Inspection Extremity: Positive for: Normal ROM Neurologic/Psych: Positive for: Alert, Oriented - Laboratory Results Result Diagrams: 09/03/18 18:56 09/03/18 18:56 - ECG O2 Sat by Pulse Oximetry: 98 Disposition - Clinical Impression Clinical Impression: Syncope, Polysubstance abuse - Patient ED Disposition Is Patient to be Admitted: Transfer of Care - Disposition Referrals: [facility] [Outside] Disposition: Transfer of Care Disposition Time: 20:00 Condition: IMPROVED Instructions: Syncope (Fainting), Polysubstance Abuse Forms: [employer] (Dutch)
[2018-09-03 19:00] LABS: BASO % 0.4 % (0.0-2.0); EOS % 0.2 % (0.0-4.0); HEMOGLOBIN 15.8 g/dL (12.0-18.0); LYMPH % 9.7 % (20.0-40.0); MEAN CELL VOLUME 93.7 fl (80.0-94.0); MEAN CORPUSCULAR HEMOGLOBIN 31.3 pg (27.0-31.0); MEAN CORPUSCULAR HGB CONC 33.4 g/dL (33.0-37.0); MEAN PLATELET VOLUME 7.6 fl (7.2-11.7); MONO # 0.6 K/uL (0.0-0.8); MONO % 5.4 % (0.0-10.0); NEUT % 84.3 % (50.0-75.0); PLATELET COUNT 258 K/uL (130-400); RBC 5.06 Mil/uL (4.40-5.90); WHITE BLOOD COUNT 10.6 K/uL (4.8-10.8)
[2018-09-03 19:17] LABS: VENOUS BLOOD GAS BASE EXCESS 1.5 mmol/L (0.0-2.0); VENOUS BLOOD GAS PCO2 49 mmHg (40-60); VENOUS BLOOD GAS PO2 50 mm/Hg (30-55); VENOUS BLOOD PH 7.36 (7.32-7.43)
[2018-09-03 19:19] LABS: ALB/GLOB RATIO 1.4 (1.0-2.1); ALT/SGPT 29 U/L (21-72); AST/SGOT 35 U/L (17-59); BLOOD UREA NITROGEN 5 mg/dl (9-20); CALCIUM 10.2 mg/dL (8.4-10.2); GFR NON-AFRICAN AMERICAN > 60
[2018-09-03 20:55] LABS: BANDS 3 % (0-2); EOSINOPHIL 1 % (0-7); LYMPHOCYTE 11 % (20-50); MONOCYTE 6 % (0-10); NEUTROPHIL 79 % (42-75); TOTAL CELLS COUNTED 100
[2018-09-03 20:56] LABS: PLATELET ESTIMATE NORMAL (NORMAL)
--- NOTE | 2018-09-03 21:07 | ED PDOC ---
- Laboratory Results Result Diagrams: 09/03/18 18:56 09/03/18 18:56 - ECG O2 Sat by Pulse Oximetry: 98 - Progress ED Course And Treament: Case endorsed to report writer from Mariano MEJIAS pending labs, imaging, re-eval EXAM: CT Head without Intravenous Contrast. CLINICAL HISTORY: Psych eval seizure TECHNIQUE: Axial computed tomography images of the head/brain without intravenous contrast. 799.72 mGy-cm COMPARISON: None provided. FINDINGS: BRAIN No acute intraparenchymal hemorrhage. No mass lesion. No CT evidence for acute territorial infarct. No midline shift or extra-axial collections. VENTRICLES: No hydrocephalus. ORBITS: The orbits are unremarkable. SINUSES AND MASTOIDS: The paranasal sinuses and mastoid air cells are clear. BONES: No fracture. SOFT TISSUES: Unremarkable. IMPRESSION: No acute intracranial abnormality. EXAM: CT Maxillofacial without Intravenous Contrast. CLINICAL HISTORY: R/o facial fx. TECHNIQUE: Axial computed tomography images of the face without intravenous contrast. Sagittal and coronal reformatted images were generated. 808.62 mGy-cm CONTRAST: Without COMPARISON: None provided. FINDINGS: BONES: No acute fracture or aggressive appearing osseous lesion. The mandible is in tact. SOFT TISSUES: The soft tissues are unremarkable. SINUSES: The sinuses are clear. ORBITS: The orbits are normal. No retrobulbar hematoma or mass. IMPRESSION: Unremarkable maxillofacial CT. Patient remains awake, alert, oriented throughout ED visit Lacate normal Case discussed with ED attending Dr. Melvin, who agrees with plan to discharge with outpatient follow up with PMD/neurology. Family states they will bring patient to PMD Saturday to get referral for neuro Return precautions given Patient demonstrates full understanding of discharge instructions Patient requires no further intervention in the ED and is stable for discharge at this time Disposition - Clinical Impression Clinical Impression: Syncope, Polysubstance abuse - POA Present On Arrival: None - Disposition Referrals: [facility] [Outside] Disposition: Routine/Home Disposition Time: 22:23 Condition: IMPROVED Instructions: Syncope (Fainting), Polysubstance Abuse Forms: [employer] (Icelandic)
[2018-09-03 21:13] LABS: URINE BILIRUBIN NEGATIVE (NEGATIVE); URINE BLOOD NEGATIVE (NEGATIVE); URINE CLARITY SLIGHTY-CLOUDY (Clear); URINE COLOR YELLOW (YELLOW); URINE GLUCOSE (UA) NEG (Normal); URINE LEUKOCYTE ESTERASE NEG Leu/uL (Negative); URINE PROTEIN 30 mg/dL (NEGATIVE); URINE UROBILINOGEN 0.2-1.0 mg/dL (0.2-1.0)
[2018-09-03 21:16] LABS: BENZODIAZEPINES, UR NEGATIVE (NEGATIVE)
[2018-09-03 21:41] LABS: BARBITURATES, UR NEGATIVE (NEGATIVE); OPIATES, UR NEGATIVE (NEGATIVE); PHENCYCLIDINE, UR NEGATIVE (NEGATIVE)
[2018-09-03 22:28] VITALS: BP 115/74; PULSE 78; RESP 18; TEMP 98.4; O2SAT 98
--- NOTE | 2018-09-04 08:43 | CT ---
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 TECHNIQUE: Contiguous axial CT images of the maxillofacial bones were obtained. Coronal and sagittal reformats were generated. Radiation dose: Total exam DLP = 1608.34 mGy-cm. This CT exam was performed using one or more of the following dose reduction techniques: Automated exposure control, adjustment of the mA and/or kV according to patient size, and/or use of iterative reconstruction technique. FINDINGS: NASAL BONES: Unremarkable. ORBITS: Unremarkable. PARANASAL SINUSES/ MASTOIDS: Clear. MAXILLA: Unremarkable. MANDIBLE/ TEMPOROMANDIBULAR JOINTS: Unremarkable. SKULL BASE: Unremarkable. TEMPORAL BONES: Middle ears and mastoid grossly unremarkable. OTHER FINDINGS: Cerumen/debris in the external auditory canal on the right. IMPRESSION: No significant or acute findings to account for/ related to the clinical presentation. Additional benign and/or incidental findings described above. Concordant results (preliminary interpretation) provided by [employer]. Procedure Completed: 19:49. Preliminary Report: Dictated and Authenticated: 21:58. Final Interpretation: 08:39. September 04, 2018
--- NOTE | 2018-09-04 10:22 | CT ---
Date of service: 09/03/2018 PROCEDURE: CT HEAD WITHOUT CONTRAST. HISTORY: Seizure COMPARISON: 07/04/2016 CT head TECHNIQUE: Axial computed tomography images were obtained through the head/brain without intravenous contrast. Supplemental Coronal and Sagittal projections created and reviewed. Radiation dose: Total exam DLP = 1608.34 mGy-cm. This CT exam was performed using one or more of the following dose reduction techniques: Automated exposure control, adjustment of the mA and/or kV according to patient size, and/or use of iterative reconstruction technique. FINDINGS: HEMORRHAGE: No intracranial hemorrhage. BRAIN: No mass effect or edema. No atrophy or chronic microvascular ischemic changes. VENTRICLES: Unremarkable. No hydrocephalus. CALVARIUM: Unremarkable. PARANASAL SINUSES: Unremarkable as visualized. No significant inflammatory changes. MASTOID AIR CELLS: Unremarkable as visualized. No inflammatory changes. OTHER FINDINGS: None. IMPRESSION: No acute intracranial abnormalities. No significant findings to account for the clinical presentation. No significant interval change compared to the prior examination(s). Concordant results (preliminary interpretation) provided by [employer] [facility]. Procedure Completed: 19:48 Preliminary Report: Dictated and Authenticated: 20:59. Final Interpretation: 10:18. September 04, 2018
== END 2018-09-03 22:55 | disposition home or self-care (01) ==
LOC: H.ER 17:18
DX: R55 Syncope and collapse (principal); F19.10 Other psychoactive substance abuse, uncomplicated